=== PATIENT | male | born 1980 | race American Indian/Alaskan Native ===

== ENCOUNTER 2016-09-02 17:08 | Emergency (ER) | payer OTHER ==
[2016-09-02] MEDS ORDERED: TYLENOL PO ONE (18:13)
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
--- NOTE | 2016-09-02 20:19 | XRay Report ---
FINAL REPORT PROCEDURE: XR CHEST ROUTINE 2V TECHNIQUE: PA and lateral chest radiographs were obtained. CPT 95127 HISTORY: Chest pain COMPARISON: No prior studies are available for comparison. FINDINGS: Heart: Normal contour. Mediastinum/Vessels: Normal contour. Lungs/Pleural space: No infiltrate, effusion, or pneumothorax. Bony thorax: No acute osseous abnormality. Other: IMPRESSION: No radiographic evidence of acute abnormality.
[2016-09-02 21:22] VITALS: BP 90/59
== END 2016-09-02 20:50 | disposition home or self-care (01) ==
LOC: ED 17:08
DX: M79.1 Myalgia (principal); R51 Headache; R07.9 Chest pain, unspecified; V49.49XA Driver injured in collision with other motor vehicles in traffic accident, initial encounter; Y93.9 Activity, unspecified; Y92.89 Other specified places as the place of occurrence of the external cause; Y99.9 Unspecified external cause status
CPT/HCPCS: 71020; 99283

== ENCOUNTER 2017-07-25 00:38 | Emergency (ER) | payer BC, OTHER ==
[2017-07-25] MEDS ORDERED: DUONEB *Not for PRN Use IH ONE ×3 (00:40→02:26)
--- NOTE | 2017-07-25 01:31 | XRay Report ---
FINAL REPORT PROCEDURE: XR CHEST ROUTINE 2V TECHNIQUE: PA and lateral chest radiographs were obtained. CPT 88428 HISTORY: BURAK COMPARISON: 09/02/2016 FINDINGS: Heart: Normal. Mediastinum/Vessels: Normal. Lungs/Pleural space: Normal. Bony thorax: No acute osseous abnormality. Other: IMPRESSION: Normal examination.
[2017-07-25] MEDS ORDERED: MAGNESIUM SULFATE 2GM/50ML 0 GM/0 ML BAG IV ONE (02:57)
[2017-07-25 03:41] VITALS: BP 129/78
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
== END 2017-07-25 04:04 | disposition home or self-care (01) ==
LOC: ED 00:38
DX: J98.01 Acute bronchospasm (principal); Z91.012 Allergy to eggs
CPT/HCPCS: 71046; 94640; 96374; 99284; J2930; J3475

== ENCOUNTER 2017-07-26 14:07 | Outpatient (CLI) | payer BC ==
[2017-07-26 16:07] LABS: Basophils # (Auto) 0.1 K/mm3 (0.0-0.1); Basophils % (Auto) 0.9 % (0.0-1.8); Eosinophils # (Auto) 0.1 K/mm3 (0.0-0.4); Eosinophils % (Auto) 1.3 % (0.0-4.3); Hematocrit 46.4 % (35.5-45.6); Hemoglobin 15.7 gm/dl (11.8-15.2); Lymphocytes # (Auto) 1.3 K/mm3 (1.2-5.4); Mean Corpuscular HGB Conc 34 % (32-34); Mean Corpuscular Hemoglobin 27 pg (28-32); Mean Corpuscular Volume 80 fl (84-94); Monocytes # (Auto) 0.2 K/mm3 (0.0-0.8); Red Blood Count 5.79 M/mm3 (3.65-5.03)
[2017-07-26 16:08] LABS: Platelet Count 114 K/mm3 (140-440)
[2017-07-26 16:31] LABS: Alanine Aminotransferase 24 units/L (7-56); Albumin 4.5 g/dL (3.9-5); BUN/Creatinine Ratio 18; Blood Urea Nitrogen 18 mg/dL (9-20); Calcium 9.3 mg/dL (8.4-10.2); Chol/HDL Ratio 3.75 %; HDL Cholesterol 36 mg/dL (40-59); Hemolysis Index 16; LDL Cholesterol,Direct 90 mg/dL (50-130)
== END 2017-07-26 14:08 | disposition home or self-care (01) ==
LOC: LAB 14:07
PROVIDERS: ATTEND Internal Medicine
DX: J45.909 Unspecified asthma, uncomplicated (principal); J20.9 Acute bronchitis, unspecified; Z79.899 Other long term (current) drug therapy
CPT/HCPCS: 36415; 36600; 80053; 80061; 82785; 82803; 84436; 84443; 85025

== ENCOUNTER 2018-07-12 21:05 | Emergency (ER) | payer BC, OTHER ==
[2018-07-12] MEDS ORDERED: PROVENTIL IH ONE ×2 (21:56→23:40)
[2018-07-12] MEDS ORDERED: CLARITIN PO ONE (23:41)
[2018-07-12] MEDS ORDERED: SOLU-Medrol IM ONE (23:41)
--- NOTE | 2018-07-12 23:44 | Emergency Department Report ---
Minor Respiratory - HPI Chief Complaint: Adult Asthma Stated Complaint: SHORTNESS OF BREATH Time Seen by Provider: 07/12/18 23:40 Duration: 4 Days Pain Location: Chest Severity: mild Minor Respiratory: Yes Able to Tolerate Fluids, Yes Cough, Yes Shortness of Breath, No Rhinorrhea, No Sore Throat, No Ear Pain, No Sick Contacts, No Hemoptysis, No Chest Pain, No Fever Other History: Patient is a 37-year-old male who comes to the ER today with wheezing. He denies having asthma. However, he was seen here last year in July at the same time with the same symptoms. He also indicates that he is on a nebulizer at home. He states that his primary care told him it was not asthma that he just had some bronchospasm. Patient is afebrile. He has no sputum. He has no other remarkable medical history. He is nontoxic, afebrile and in the talking while talking while walking.there is no inc wob ED Review of Systems ROS: Stated complaint: SHORTNESS OF BREATH Other details as noted in HPI Comment: All other systems reviewed and negative Constitutional: denies: chills Eyes: denies: eye pain ENT: denies: ear pain Respiratory: see HPI, cough, wheezing Endocrine: denies: see HPI, intolerance to cold Gastrointestinal: denies: vomiting Genitourinary: denies: urgency Musculoskeletal: denies: back pain Skin: denies: rash Neurological: denies: headache Psychiatric: denies: anxiety Hematological/Lymphatic: denies: easy bleeding ED Past Medical Hx - Past Medical History Previous Medical History?: Yes Additional medical history: Bronchospasm - Surgical History Past Surgical History?: Yes - Family History Family history: no significant - Social History Smoking Status: Never Smoker Substance Use Type: None - Medications Home Medications: Home Medications Medication Instructions Recorded Confirmed Last Taken Type ALBUTEROL NEB's [Proventil 0.083% 2.5 mg IH TID PRN #1 box 07/12/18 Unknown Rx NEBS] Albuterol Sulfate [Ventolin HFA] 2 puff IH Q4H PRN #1 hfa.aer.ad 07/12/18 Unknown Rx Cetirizine HCl [ZyrTEC] 10 mg PO DAILY #30 capsule 07/12/18 Unknown Rx Fluticasone [Flonase] 1 spray NS QDAY #1 bottle 07/12/18 Unknown Rx predniSONE [Deltasone] 20 mg PO DAILY #5 tablet 07/12/18 Unknown Rx Minor Respiratory Exam - Exam General: Vital signs noted. No distress. Alert and acting appropriately. HEENT: Yes Moist Mucous Membranes, No Pharyngeal Erythema, No Pharyngeal Exudates, No Rhinorrhea, No Conjuctival Injection, No Frontal Tenderness, No Maxillary Tenderness Ear: Neither TM Bulge, Neither TM Erythema, Neither EAC Pain, Neither EAC Discharge Neck: Yes Supple, No Adenopathy Lungs: Yes Good Air Exchange, Yes Wheezes, Yes Cough, No Ronchi, No Stridor, No Labored Respirations, No Retractions, No Use of Accessory Muscles, No Other Abnormal Lung Sounds Heart: Yes Regular, No Murmur Abdomen: Yes Normal Bowel Sounds, No Tenderness, No Peritoneal Signs Skin: No Rash, No Edema Neurologic: Alert and oriented, no deficits. Musculoskeletal: Unremarkable. ED Course Vital Signs 07/12/18 07/12/18 07/12/18 21:21 21:50 22:08 Temperature 98.3 F 98.2 F Pulse Rate 98 H 86 Pulse Rate [ 100 H Anterior Bilateral] Respiratory 18 16 Rate Respiratory 17 Rate [Anterior Bilateral] Blood Pressure 139/91 139/91 O2 Sat by Pulse 94 Oximetry ED Medical Decision Making - Medical Decision Making no fever no sputum ambulatory non toxic medicated in ER with relief educated on RAD pt will follow up with pcp for clarification of his dx. dc home with dc plan of care. Vital Signs (72 hours) 07/12/18 07/12/18 07/12/18 21:21 21:50 22:08 Temperature 98.3 F 98.2 F Pulse Rate 98 H 86 Pulse Rate [ 100 H Anterior Bilateral] Respiratory 18 16 Rate Respiratory 17 Rate [Anterior Bilateral] Blood Pressure 139/91 139/91 O2 Sat by Pulse 94 Oximetry 07/12/18 23:52 Temperature Pulse Rate Pulse Rate [ 87 Anterior Bilateral] Respiratory Rate Respiratory 16 Rate [Anterior Bilateral] Blood Pressure O2 Sat by Pulse Oximetry Critical care attestation.: If time is entered above; I have spent that time in minutes in the direct care of this critically ill patient, excluding procedure time. ED Disposition Clinical Impression: Wheezing, Reactive airway disease Disposition: DC-01 TO HOME OR SELFCARE Is pt being admited?: No Does the pt Need Aspirin: No Condition: Stable Instructions: Reactive Airways Disease (ED) Additional Instructions: HYDRATE WELL WITH WATER FOLLOW UP PCP OR PULMONARY MD WE DISCUSSED AVOID TRIGGER ACTIVITY TOLERATED DIET TOLERATED MED ORDERED Prescriptions: predniSONE [Deltasone] 20 mg PO DAILY #5 tablet Fluticasone [Flonase] 1 spray NS QDAY #1 bottle ALBUTEROL NEB's [Proventil 0.083% NEBS] 2.5 mg IH TID PRN #1 box PRN Reason: Wheezing Albuterol Sulfate [Ventolin HFA] 2 puff IH Q4H PRN #1 hfa.aer.ad PRN Reason: Shortness Of Breath Cetirizine HCl [ZyrTEC] 10 mg PO DAILY #30 capsule Referrals: [facility] [Outside] - 3-5 Days Time of Disposition: 23:41
[2018-07-13 01:51] VITALS: BP 127/83
== END 2018-07-13 01:51 | disposition home or self-care (01) ==
LOC: ED 21:05
DX: J45.909 Unspecified asthma, uncomplicated (principal); Z91.012 Allergy to eggs
CPT/HCPCS: 94640; 96372; 99283; J2930